=== PATIENT | male | born 1960 | race Caucasian/White ===

== ENCOUNTER 2021-07-15 15:24 | Inpatient (IN) | payer BC ==
[~2021-07-15] VITALS: Ht 188 cm; Wt 85.3 kg
--- NOTE | 2021-07-15 15:35 | NUR ---
PATIENT BIBRA FOR C/O ON AND OFF MID CHEST PAIN RADIATING TO RIGHT ARM X3 WEEKS. WORST TODAY. PATIENT IS AWAKE, ALERT AND ORIENTED X4. O RESPIRATORY DISTRESS NOTED. WILL CONTINUE TO MONITOR.
--- NOTE | 2021-07-15 15:47 | NUR ---
GREGORIA HENNING AT BEDSIDE
--- NOTE | 2021-07-15 15:48 | NUR ---
Note [email or web address] in EDM - 07/15/21 at 1550 by [email or web address] PATIENT BIBRA FOR C/O ON AND OFF MID CHEST PAIN RADIATING TO RIGHT ARM X3 WEEKS. WORST TODAY. PATIENT IS AWAKE, ALERT AND ORIENTED X4. O RESPIRATORY DISTRESS NOTED. WILL CONTINUE TO MONITOR.
--- NOTE | 2021-07-15 16:08 | NUR ---
MOVE SHEET SUBMITTED AND CALLED FOR BED.
[2021-07-15 16:10] LABS: BASOPHILS # (AUTO) 0.1 K/uL (0.0-0.2); BASOPHILS % (AUTO) 0.3 % (0.0-2.0); EOSINOPHILS % (AUTO) 0.5 % (0.0-6.0); HEMATOCRIT 44 % (39-51); HEMOGLOBIN 14.4 g/dL (13.5-17.5); LYMPHOCYTES # (AUTO) 1.6 K/uL (0.8-4.8); LYMPHOCYTES % (AUTO) 10.7 % (20.0-44.0); MEAN CORPUSCULAR HGB CONC 33 g/dl (31.0-36.0); MEAN CORPUSCULAR VOLUME 81 fL (80-96); MONOCYTES # (AUTO) 1.3 K/uL (0.1-1.30); MONOCYTES % (AUTO) 8.6 % (2.0-12.0); NEUTROPHILS % (AUTO) 79.9 % (43.0-81.0); PLATELET COUNT (AUTO) 171 K/uL (150-450); RED BLOOD CELL COUNT(AUTO) 5.42 MIL/uL (4.5-6.0)
[2021-07-15 16:14] LABS: CALCIUM, SERUM 9.2 mg/dL (8.5-10.1)
[2021-07-15] MEDS ORDERED: ONDANSETRON HCL/PF 4 MG/2 ML VIAL ONE (16:26)
[2021-07-15] MEDS ORDERED: ONDANSETRON HCL/PF 4 MG/2 ML VIAL IV ONE (16:30)
[2021-07-15] MEDS ORDERED: MORPHINE SULFATE INJ 2 MG/ML DISP.SYRIN IV ONE (16:30)
[2021-07-15] MEDS ORDERED: IOHEXOL-350 100 ML VIAL IV ONE ×2 (16:31→16:39)
[2021-07-15] MEDS ORDERED: MORPHINE SULFATE INJ 4 MG/ML DISP.SYRIN ONE (16:33)
--- NOTE | 2021-07-15 16:37 | NUR ---
PATIENT OFF TO CT Addendum: 07/15/21 at 1637 by [email or web address] AND COVID SWAB SENT TO LAB
--- NOTE | 2021-07-15 17:02 | NUR ---
[facility] CALLED MANAGER COUNCIL PAGED.
[2021-07-15 17:29] LABS: THYROID STIMULATING HORMONE 1.158 uIU/mL (0.358-3.74)
[2021-07-15] MEDS ORDERED: ENOXAPARIN SODIUM 80 MG/0.8 ML DISP.SYRIN SQ ONE (18:00)
[2021-07-15] MEDS ORDERED: ENOXAPARIN SODIUM 100 MG/ML DISP.SYRIN SQ ONE (18:10)
[2021-07-15] MEDS ORDERED: LORAZEPAM INJ 2 MG/ML VIAL IV ONE (19:30)
[2021-07-15] MEDS ORDERED: LORAZEPAM INJ 2 MG/ML VIAL ONE (19:35)
--- NOTE | 2021-07-15 19:45 | NUR ---
PT C/O ANXIETY. ADMINISTERED ATIVAN 1MG ORDERED. BP 177/111, HR 84, RR 25, O2SAT 98% ON RA
[2021-07-15] MEDS ORDERED: MAGNESIUM HYDROXIDE 30 ML UDC PO PRN (20:00)
[2021-07-15] MEDS ORDERED: Z GUARD REMEDY 2 OZ OINT TP PRN (20:00)
[2021-07-15] MEDS ORDERED: ACETAMINOPHEN 325 MG TABLET PO PRN (20:00)
[2021-07-15] MEDS ORDERED: ONDANSETRON HCL/PF 4 MG/2 ML VIAL IVP PRN (20:00)
[2021-07-15] MEDS ORDERED: MAG HYDROX/AL HYDROX/SIMETH 30 ML UDC PO PRN (20:00)
--- NOTE | 2021-07-15 20:04 | NUR ---
TELE 309-3
--- NOTE | 2021-07-15 20:25 | NUR ---
Report given to Hoang CESPEDES
[2021-07-15] MEDS ORDERED: hydrALAZINE HCL IV 20 MG VIAL IV STA (20:30)
[2021-07-15] MEDS ORDERED: hydrALAZINE HCL IV 20 MG VIAL ONE (20:38)
--- NOTE | 2021-07-15 21:11 | NUR ---
pt transferred to tele room 309-1 via ACLS measures
[2021-07-15 21:15] VITALS: BP 187/98
[2021-07-15] MEDS: MORPHINE SULFATE INJ 2 MG/ML DISP.SYRIN IV PRN (21:35)
[2021-07-15] MEDS ORDERED: HEPARIN SODIUM, PORCINE 5000 UNITS/1 ML VIAL SQ ONE (22:00)
[2021-07-15] MEDS: HEPARIN INFUSION/D5W 500 ML IV PRN (22:05)
[2021-07-16] VITALS: BP 163/101
[2021-07-16] MEDS: LORAZEPAM 1 MG TABLET PO PRN ×5 (00:12→22:16)
[2021-07-16 04:00] VITALS: BP 145/109
[2021-07-16] MEDS: MORPHINE SULFATE INJ 2 MG/ML DISP.SYRIN IV PRN ×2 (04:15→20:31)
--- NOTE | 2021-07-16 04:15 | NUR ---
RN NOTES COMPLAINED OF GENERALIZED PAIN- MORPHINE 2 MG IV GIVEN ORDERED, V/S STABLE
[2021-07-16 04:28] LABS: BASOPHILS # (AUTO) 0.1 K/uL (0.0-0.2); BASOPHILS % (AUTO) 0.4 % (0.0-2.0); EOSINOPHILS % (AUTO) 1.2 % (0.0-6.0); HEMATOCRIT 42 % (39-51); HEMOGLOBIN 13.7 g/dL (13.5-17.5); LYMPHOCYTES # (AUTO) 1.6 K/uL (0.8-4.8); LYMPHOCYTES % (AUTO) 11.8 % (20.0-44.0); MEAN CORPUSCULAR HGB CONC 33 g/dl (31.0-36.0); MEAN CORPUSCULAR VOLUME 82 fL (80-96); MONOCYTES # (AUTO) 1.3 K/uL (0.1-1.30); MONOCYTES % (AUTO) 9.5 % (2.0-12.0); NEUTROPHILS # (AUTO) 10.3 K/uL (1.8-8.9); NEUTROPHILS % (AUTO) 77.1 % (43.0-81.0); PLATELET COUNT (AUTO) 146 K/uL (150-450); RED BLOOD CELL COUNT(AUTO) 5.11 MIL/uL (4.5-6.0); WHITE BLOOD COUNT (AUTO) 13.4 K/uL (4.3-11.0)
[2021-07-16 04:37] LABS: CALCIUM, SERUM 8.7 mg/dL (8.5-10.1); CREATININE 0.9 mg/dL (0.6-1.3); MAGNESIUM 2.2 mg/dL (1.8-2.4); PHOSPHORUS 4.1 mg/dL (2.5-4.9); POTASSIUM 3.8 mmol/L (3.5-5.1)
--- NOTE | 2021-07-16 06:47 | NUR ---
ELEVATOR TROUBLESHOOTER NOTES AWAKE & RESPONSIVE. NOT IN ANY DISTRESS. NO SOB NOTED. DENIES ANY PAIN OR DISCOMFORT AT THIS TIME. ON TELE ST @ 108 WITH HEPARIN DRIP INFUSING WELL. MONITORED ACCORDINGLY. CALL LIGHT WITHIN REACH. BED IN LOWEST POSITION. SR UP X 2 FOR SAFETY. WILL ENDORSE TO NEXT SHIFT.
--- NOTE | 2021-07-16 07:47 | NUR ---
OCCASIONAL BABYSITTER OPENING NOTES PT IS AWAKE IN BED. NOT IN ANY DISTRESS. NO SOB NOTED. DENIES ANY PAIN OR DISCOMFORT AT THIS TIME. TELE MONITOR DETECTS SINUS TACHYCARDIA @ 107, WITH HEPARIN DRIP INFUSING WELL. SAFETY MEASURES IN PLACE: BED IN LOWEST, LOCKED POSITION, BRAKES ON, SIDERAILS UPx2 FOR SAFETY. CALL LIGHT AND TABLE WITHIN REACH. WILL CONTINUE TO MONITOR.
[2021-07-16 08:23] VITALS: BP 162/92
[2021-07-16] MEDS ORDERED: CLONIDINE HCL 0.1 MG TABLET PO PRN (09:30)
[2021-07-16] MEDS: NIFEdipine XL (30MG) 30 MG TAB PO SCH (09:45)
--- NOTE | 2021-07-16 10:48 | NUR ---
RN NOTES PATIENT ACCIDENTALLY PULLED OUT L HAND #18 IV LINE; REINSERTED ON SAME SITE, #20, INTACT AND PATENT. HEPARIN DRIP CONTINUED INDICATED. NO S/SX OF BLEEDING NOTED. DR. OCASIO MADE AWARE WELL OF TROPONIN RESULT AND BP W/ ORDERS NOTED.
[2021-07-16 12:20] VITALS: BP 155/96
[2021-07-16] MEDS: HEPARIN INFUSION/D5W 500 ML IV PRN (14:55)
--- NOTE | 2021-07-16 15:21 | NUR ---
Spoke to Dr. Akins about increasing Ativan to 1 mg, Dr. Akins agreed.
[2021-07-16 16:01] VITALS: BP 153/96
[2021-07-16 16:12] LABS: PROSTATE SPECIFIC ANTIGEN SCR 0.38 ng/mL (0.00-4.00)
--- NOTE | 2021-07-16 16:52 | NUR ---
RN NOTES YANELIS DOSS, CURRENTLY IN UNIT AND SEEN PATIENT FOR ONCO CONSULT. PER ROMARIO, PATIENT SCHEDULED FOR LIVER BIOPSY ON MONDAY.
--- NOTE | 2021-07-16 18:29 | NUR ---
STAGE DIRECTOR CLOSING NOTES PT IS AWAKE IN BED. NOT IN ANY DISTRESS. NO SOB NOTED. DENIED ANY PAIN OR DISCOMFORT THROUGHOUT SHIFT. TELE MONITOR DETECTS SINUS TACHYCARDIA WITH RATE FROM 100-110 WITH HEPARIN DRIP INFUSING WELL. ALL NEEDS MET. PT KEPT CLEAN AND DRY. SAFETY MEASURES IN PLACE: BED IN LOWEST, LOCKED POSITION, BRAKES ON, SIDERAILS UPx2 FOR SAFETY. CALL LIGHT AND TABLE WITHIN REACH. WILL ENDORSE TO ONCOMING SHIFT.
--- NOTE | 2021-07-16 19:45 | NUR ---
FINISHER ACCORDION OPENING NOTES PATIENT IN ROOM, APPEARS AND STATES THAT HE IS ANXIOUS BUT ATIVAN NOT DUE AT THIS TIME, ALERT/ORIENTED X 4, PATIENT ABLE TO MAKE NEEDS KNOWN. PT STABLE ON ROOM AIR, NO S/S OF DISTRESS OR SOB NOTED, BREATHING EVEN AND UNLABORED. PT ON TELE MONITORING, SINUS TACHY. HEPARIN DRIP INFUSING WELL @ 31 ML/HR, NO S/S OF BLEEDING. PATIENT IS AMBULATORY AND STEADY. SAFETY MEASURES IN PLACE: CALL LIGHT WITHIN REACH, BED LOCKED IN LOW POSITION, SIDE RAILS UP X 2. WILL CONTINUE TO MONITOR
[2021-07-16 20:00] VITALS: BP 152/99
--- NOTE | 2021-07-16 20:31 | NUR ---
GENERAL MAINTENANCE TECHNICIAN NOTE PATIENT REPORTING 9/10 BACK PAIN. 2 MG OF MORPHINE IVP Q6H GIVEN ORDERED. WILL CONTINUE TO MONITOR PATIENT
--- NOTE | 2021-07-16 22:16 | NUR ---
DISPATCHER SERVICE CHIEF NOTE PATIENT IS VERY ANXIOUS AND PACING IN THE ROOM. ATIVAN 1 MG PO GIVEN ORDERED. WILL CONTINUE TO MONITOR PATIENT
[2021-07-16] MEDS ORDERED: MORPHINE SULFATE INJ 2 MG/ML DISP.SYRIN IV ONE (23:00)
--- NOTE | 2021-07-16 23:00 | NUR ---
NETWORK SOLUTIONS ARCHITECT NOTE PATIENT STILL IN EXCRUCIATING PAIN, 9/O BACK PAIN, HOWEVER MORPHINE IS Q6H HOURS. CHARGE NURSE BRITTANY CONTACTED DR. HAYWARD REGARDING PATIENT'S PAIN WITH NEW ORDER FOR A ONE TIME DOSE OF MORPHINE 2 MG IV NOW, WELL A NEW ORDER FOR MORPHINE 4 MG IVP Q4H. ORDER CARRIED OUT. WILL CONTINUE TO MONITOR PATIENT
[2021-07-17] VITALS: BP 138/96
--- NOTE | 2021-07-17 00:15 | NUR ---
PRODUCTION CORRUGATOR NOTE PATIENT ACCIDENTALLY PULLED OUT LEFT HAND #20G IV LINE WITH SOME BLEEDING THAT STOPPED AFTER FIRM PRESSURE WAS APPLIED. NEW IV INSERTED RIGHT HAND #20G AND HEPARIN DRIP CONTINUED AND INFUSING WELL. WILL CONTINUE TO MONITOR PATIENT
[2021-07-17] MEDS: MORPHINE SULFATE INJ 4 MG/ML DISP.SYRIN IV PRN ×5 (03:00→21:54)
[2021-07-17 04:00] VITALS: BP 173/98
[2021-07-17] MEDS: LORAZEPAM 1 MG TABLET PO PRN ×3 (05:10→20:41)
[2021-07-17 06:27] LABS: BASOPHILS # (AUTO) 0.1 K/uL (0.0-0.2); BASOPHILS % (AUTO) 0.5 % (0.0-2.0); EOSINOPHILS % (AUTO) 1.4 % (0.0-6.0); HEMATOCRIT 41 % (39-51); HEMOGLOBIN 13.3 g/dL (13.5-17.5); LYMPHOCYTES # (AUTO) 1.4 K/uL (0.8-4.8); LYMPHOCYTES % (AUTO) 11.2 % (20.0-44.0); MEAN CORPUSCULAR HGB CONC 33 g/dl (31.0-36.0); MEAN CORPUSCULAR VOLUME 82 fL (80-96); MONOCYTES # (AUTO) 1.2 K/uL (0.1-1.30); MONOCYTES % (AUTO) 9.6 % (2.0-12.0); NEUTROPHILS # (AUTO) 9.8 K/uL (1.8-8.9); NEUTROPHILS % (AUTO) 77.3 % (43.0-81.0); PLATELET COUNT (AUTO) 153 K/uL (150-450); RED BLOOD CELL COUNT(AUTO) 4.99 MIL/uL (4.5-6.0); WHITE BLOOD COUNT (AUTO) 12.6 K/uL (4.3-11.0)
[2021-07-17 06:45] LABS: CALCIUM, SERUM 9.1 mg/dL (8.5-10.1); CREATININE 0.8 mg/dL (0.6-1.3); MAGNESIUM 2.2 mg/dL (1.8-2.4); PHOSPHORUS 3.7 mg/dL (2.5-4.9); POTASSIUM 3.7 mmol/L (3.5-5.1)
--- NOTE | 2021-07-17 07:52 | NUR ---
TELE/RN OPENING NOTES RECEIVED PATIENT ON BED SLEEPING EASILY AWAKEN BY NAME AND LIGHT TOUCH. PATIENT IS ON ROOM AIR. PATIENT IN NO APPARENT RESPIRATORY DISTRESS NOTED. NO COMPLAINED OF PAIN NOTED AT THIS TIME. TELE MONITOR READING SINUS RHYTHM 85 BPM. WILL CONTINUE TO MONITOR.
[2021-07-17 08:00] VITALS: BP 149/107
[2021-07-17 08:06] LABS: IMMUNOGLOBULIN A, SERUM 532 mg/dL (90-386); IMMUNOGLOBULIN G, SERUM 1019 mg/dL (603-1613); IMMUNOGLOBULIN M, SERUM 53 mg/dL (20-172)
[2021-07-17] MEDS: NIFEdipine XL (30MG) 30 MG TAB PO SCH (08:16)
[2021-07-17] MEDS ORDERED: HEPARIN SODIUM, PORCINE 5000 UNITS/1 ML VIAL IV ONE (09:30)
[2021-07-17] MEDS: HEPARIN INFUSION/D5W 500 ML IV PRN (09:41)
--- NOTE | 2021-07-17 09:50 | NUR ---
TELE/RN NOTES APTT 36.0 SEC GIVE BOLUS 3400 UNITS(40UNITS/KG) AND INCREASE DRIP BY 2 UNITS/KG/H=150 UNITS/H AND ORDER PTT AT 1540. WILL CONTINUE TO MONITOR.
[2021-07-17 16:13] VITALS: BP 159/85
--- NOTE | 2021-07-17 17:20 | NUR ---
TELE/RN NOTES APTT 51.1 SEC (46-70 SECONDS, NO CHANGE), HEPARIN DRIP 1700 UNITS AT 34ML/HR. WILL CONTINUE TO MONITOR.
--- NOTE | 2021-07-17 19:22 | NUR ---
TELE/RN CLOSING NOTES RECEIVED PATIENT ON BED AWAKE ALERT AND ORIENTED X4. PATIENT IS ON ROOM AIR. PATIENT IN NO APPARENT RESPIRATORY DISTRESS NOTED. NO COMPLAINED OF PAIN NOTED AT THIS TIME. TELE MONITOR READING SINUS RHYTHM 99 BPM. SEEN AND EXAMINED BY MD WITH ORDERS MADE AND CARRIED OUT. ALL DUE MEDICATION WAS GIVEN. IV ACCESS AT RIGHT HAND #20G WITH HEPARIN DRIP 1700 UNITS AT 34 ML/HR ML/HR ON AND INFUSING WELL. SAFETY PRECAUTION WAS IN PLACED. BED IN LOWEST POSITION AND LOCKED. CALL LIGHT WITHIN REACH. WILL ENDORSED TO FREELANCE DESIGNER FOR FRIEDA.
--- NOTE | 2021-07-17 19:23 | NUR ---
carbon lamp cleaner Opening Notes Patient was awake sitting on his bed. Patient's A/O x4. Pt's on room air with no respiratory distress noted. Patient's connected to a tele monitor with no cardiac distress noted. Patient has an IV access on his right hand G#20, which is intact, patent, and flushing well. Patient's in no acute distress at this time. Safety measures in place: Bed locked, bed alarm on, side rails up x3, and call light within reach of the patient. Will continue to monitor the patient.
[2021-07-17 20:00] VITALS: BP 135/90
--- NOTE | 2021-07-17 21:54 | NUR ---
extension course coordinator Notes Patient was given 4mg of Morphine IV for 10/10 pain. Will continue to monitor the patient.
[2021-07-18] VITALS: BP 148/91
[2021-07-18] MEDS: HEPARIN INFUSION/D5W 500 ML IV PRN ×3 (00:29→17:50)
[2021-07-18] MEDS: MORPHINE SULFATE INJ 4 MG/ML DISP.SYRIN IV PRN ×4 (02:35→21:30)
--- NOTE | 2021-07-18 02:35 | NUR ---
import/export freight forwarder Notes Patient was given 4mg of Morphine IV for 10/10 pain. Will continue to monitor the patient.
[2021-07-18] MEDS: LORAZEPAM 1 MG TABLET PO PRN ×2 (03:49→18:56)
[2021-07-18 04:00] VITALS: BP 165/83
[2021-07-18 05:47] VITALS: BP 157/95
--- NOTE | 2021-07-18 05:47 | NUR ---
cns Notes Patient's current BP is 157/95. Will continue to monitor the patient.
--- NOTE | 2021-07-18 06:56 | NUR ---
brief writer Closing Notes Patient was last seen sleeping in bed. Patient's A/O x4. Pt's on room air with no respiratory distress noted. Patient's connected to a tele monitor with no cardiac distress noted. Patient has an IV access on his right hand G#20, which is intact, patent, and flushing well. Patient's in no acute distress at this time. Safety measures in place: Bed locked, bed alarm on, side rails up x3, and call light within reach of the patient. Will endorse care to the day shift nurse.
[2021-07-18 07:09] LABS: CALCIUM, SERUM 9.1 mg/dL (8.5-10.1); CREATININE 0.9 mg/dL (0.6-1.3); MAGNESIUM 2.3 mg/dL (1.8-2.4); PHOSPHORUS 4.5 mg/dL (2.5-4.9); POTASSIUM 3.9 mmol/L (3.5-5.1)
[2021-07-18 07:10] LABS: ALBUMIN 3.2 g/dL (3.4-5.0); BILIRUBIN,DIRECT 0.1 mg/dL (0.0-0.2); BILIRUBIN,TOTAL 0.3 mg/dL (0.2-1.0); TOTAL PROTEIN, SERUM 7.5 g/dL (6.4-8.2)
--- NOTE | 2021-07-18 07:26 | NUR ---
MAIL AGENT OPENING NOTES RECEIVED PATIENT RESTING IN BED. PATIENT IS ALERT/ORIENTED X 4, PATIENT ABLE TO MAKE NEEDS KNOWN. PT IS BREATHING EVENLY AND NONLABORED STABLE ON ROOM AIR, NO S/S OF DISTRESS OR SOB NOTED. PATIENT DOES NOT COMPLAIN OF PAIN AT THIS TIME. PT ON TELE MONITORING, SINUS TACHY. HEPARIN DRIP INFUSING WELL @ 34 ML/HR, NO S/S OF BLEEDING. SAFETY MEASURES IN PLACE: CALL LIGHT WITHIN REACH, BED LOCKED IN LOW POSITION, BED ALARM ON, SIDE RAILS UP X 2. WILL CONTINUE TO MONITOR
[2021-07-18] MEDS: NIFEdipine XL (30MG) 30 MG TAB PO SCH (08:23)
--- NOTE | 2021-07-18 09:05 | NUR ---
RN NOTE PATIENT COMPLAINED OF SEVERE PAIN 07/30. PATIENT ASKED FOR PRN PAIN MEDICATION. VITALS WNL. WILL GIVE PRN PAIN MEDICATION. WILL CONTINUE TO MONITOR
--- NOTE | 2021-07-18 13:26 | NUR ---
RN NOTE PATIENT COMPLAINED OF SEVERE PAIN 07/30. PATIENT ASKED FOR PRN PAIN MEDICATION. VITALS WNL. WILL GIVE PRN PAIN MEDICATION, VIAL WOULD NOT SCAN, PHARMACY NOTIFIED. PHARMACY STATED THEY WOULD SCAN. WILL CONTINUE TO MONITOR
--- NOTE | 2021-07-18 17:03 | NUR ---
RN NOTE PTT RESULT @ 43.7, FOLLOWED HEPARIN PROTOCOL BOLUS HEPARIN 3.4 AND INCREASED TO 1850 UNITS. ORDERED Q6HR PTT DRAW. WILL CONTINUE TO MONITOR
--- NOTE | 2021-07-18 17:26 | NUR ---
RN NOTE PATIENT COMPLAINED OF SEVERE PAIN 07/30. PATIENT ASKED FOR PRN PAIN MEDICATION. VITALS WNL. WILL GIVE PRN PAIN MEDICATION. WILL CONTINUE TO MONITOR
[2021-07-18] MEDS ORDERED: HEPARIN SODIUM, PORCINE 5000 UNITS/1 ML VIAL IV ONE (17:30)
--- NOTE | 2021-07-18 18:28 | NUR ---
DESK CLERK CLOSING NOTES PATIENT RESTING IN BED. PATIENT IS ALERT/ORIENTED X 4, PATIENT ABLE TO MAKE NEEDS KNOWN. PT IS BREATHING EVENLY AND NONLABORED STABLE ON ROOM AIR, NO S/S OF DISTRESS OR SOB NOTED. PATIENT DOES NOT COMPLAIN OF PAIN AT THIS TIME. PT ON TELE MONITORING, SINUS TACHY. HEPARIN DRIP INFUSING WELL @ ML/HR, NO S/S OF BLEEDING. ALL MEDICATIONS GIVEN ORDERED. SAFETY MEASURES IN PLACE: CALL LIGHT WITHIN REACH, BED LOCKED IN LOW POSITION, BED ALARM ON, SIDE RAILS UP X 2. WILL ENDORSE TO ONCOMING SHIFT.
--- NOTE | 2021-07-18 19:44 | NUR ---
sports attorney Opening Notes Patient was last seen sleeping in bed. Patient's A/O x4. Pt's on room air with no respiratory distress noted. Patient's connected to a tele monitor with no cardiac distress noted. Patient has an IV access on his right hand G#20, which is intact, patent, and flushing well. Patient's in no acute distress at this time. All safety measures in place: Bed locked, bed alarm on, side rails up x3, and call light within reach of the patient. Will continue to monitor the patient.
--- NOTE | 2021-07-18 21:30 | NUR ---
stitch cleaner Notes Patient c/o of 10/10 pain. Patient was given 4mg of Morphine IV. Will continue to monitor the patient.
[2021-07-19 00:38] VITALS: BP 155/95
[2021-07-19] MEDS: LORAZEPAM 1 MG TABLET PO PRN ×2 (01:01→08:51)
[2021-07-19] MEDS: MORPHINE SULFATE INJ 4 MG/ML DISP.SYRIN IV PRN ×4 (01:31→22:13)
[2021-07-19 04:39] VITALS: BP 157/90
--- NOTE | 2021-07-19 05:04 | NUR ---
coastal tug mate Notes Just called Radiology now. [facility]/Environmental Technician was endorsed to notify the Radiologist that will be performing the patient's biopsy that heparin has to be held 4 hours prior biopsy. There's no scheduled time for the biopsy today.
[2021-07-19] MEDS: HEPARIN INFUSION/D5W 500 ML IV PRN (05:25)
[2021-07-19 06:22] LABS: BASOPHILS # (AUTO) 0.1 K/uL (0.0-0.2); BASOPHILS % (AUTO) 0.6 % (0.0-2.0); EOSINOPHILS % (AUTO) 1.1 % (0.0-6.0); HEMATOCRIT 41 % (39-51); HEMOGLOBIN 13.4 g/dL (13.5-17.5); LYMPHOCYTES # (AUTO) 1.6 K/uL (0.8-4.8); LYMPHOCYTES % (AUTO) 14.2 % (20.0-44.0); MEAN CORPUSCULAR HGB CONC 32 g/dl (31.0-36.0); MEAN CORPUSCULAR VOLUME 83 fL (80-96); MONOCYTES # (AUTO) 1.2 K/uL (0.1-1.30); MONOCYTES % (AUTO) 10.4 % (2.0-12.0); NEUTROPHILS # (AUTO) 8.5 K/uL (1.8-8.9); NEUTROPHILS % (AUTO) 73.7 % (43.0-81.0); PLATELET COUNT (AUTO) 170 K/uL (150-450); RED BLOOD CELL COUNT(AUTO) 5.02 MIL/uL (4.5-6.0); WHITE BLOOD COUNT (AUTO) 11.5 K/uL (4.3-11.0)
[2021-07-19 06:44] LABS: ALBUMIN 3.2 g/dL (3.4-5.0); BILIRUBIN,TOTAL 0.4 mg/dL (0.2-1.0); CREATININE 0.9 mg/dL (0.6-1.3); MAGNESIUM 2.1 mg/dL (1.8-2.4); PHOSPHORUS 4.2 mg/dL (2.5-4.9); POTASSIUM 4.3 mmol/L (3.5-5.1); TOTAL PROTEIN, SERUM 7.6 g/dL (6.4-8.2)
--- NOTE | 2021-07-19 07:26 | NUR ---
telephone lineman Closing Notes Patient was last seen awake in his room. Patient's A/O x4. Pt's on room air with no respiratory distress noted. Patient's connected to a tele monitor with no cardiac distress noted. Patient has an IV access on his right hand G#20, which is intact, patent, and flushing well. Patient's in no acute distress at this time. All safety measures in place: Bed locked, bed alarm on, side rails up x3, and call light within reach of the patient. Endorsed care to the day shift nurse.
[2021-07-19 08:00] VITALS: BP 164/96
--- NOTE | 2021-07-19 08:05 | NUR ---
CONSTRUCTION TECHNICIAN OPENING NOTES RECEIVED PATIENT AWAKE, WALKING THE HALLWAY. PATIENT ON ROOM AIR. BREATHING IS EVEN AND UNLABORED, NO SOB NOTED. TELE MONITOR WITH A CURRENT READING OS SR 97 BPM. NO COMPLAINS OF PAIN. IV ACCESS ON R HAND G #20 RUNNING HEPARIN DRIP 1850 @37 ML/HR. SAFETY PRECAUTIONS IN PLACE; BED IN LOW POSITION AND LOCKED, RAILS UP X2, CALL LIGHT WITHIN REACH. WILL CONTINUE TO MONITOR PATIENT.
[2021-07-19] MEDS: NIFEdipine XL (30MG) 30 MG TAB PO SCH (08:37)
--- NOTE | 2021-07-19 08:52 | NUR ---
HAM FACER NOTES PATIENT VERY ANXIOUS; MOVES AROUND IN BED, ASKS FOR ANXIETY MEDICATION. PRN ATIVAN ADMINISTERED.
--- NOTE | 2021-07-19 10:20 | NUR ---
MS RN NOTES PER MD ORDER HEPARIN INFUSION STOPPED 4 HOURS BEFORE PROCEDURE. PROCEDURE TIME AT 1400, INFUSION STOPPED AT 1010
--- NOTE | 2021-07-19 14:00 | NUR ---
MS RN NOTES PATIENT PICKED-UP FOR PROCEDURE
[2021-07-19] MEDS ORDERED: NALOXONE PREFILLED SYRINGE 2 MG/2 ML SYRINGE IV ONE (14:30)
[2021-07-19] MEDS ORDERED: MIDAZOLAM HCL 5MG/ML VIAL 25 MG/5 ML VIAL IV ONE (14:30)
[2021-07-19] MEDS ORDERED: FENTANYL PF 250MCG/5ML AMPUL IV ONE (14:30)
[2021-07-19 16:00] VITALS: BP 168/91
--- NOTE | 2021-07-19 16:37 | NUR ---
MS RN NOTES PER MD ORDER TO RESTART HEPARIN DRIP 6 HOURS AFTER PROCEDURE.
--- NOTE | 2021-07-19 17:24 | NUR ---
MS RN NOTES PATIENT COMPLAINING OF PAIN 9 OUT OF 10 IN THE BACK AND REQUESTING PAIN MEDICATION. PRN MORPHINE 4 MG ADMINISTERED. WILL REASSESS.
--- NOTE | 2021-07-19 19:30 | NUR ---
RN OPENING NOTE PATIENT WALKING AROUND HIS ROOM, A/O X 4, ABLE TO MAKE NEEDS KNOWN. NO PAIN REPORTED AT THIS TIME. PATIENT'S BREATHING EVEN AND UNLABORED, TOLERATING ROOM AIR, NO SOB. PATIENT IS S/P LIVER MASS BIOPSY. HEPARIN DRIP ON HOLD, WILL RESUME AT 2200. PATIENT HAS A R HAND 20 G PATENT AND INTACT. WILL MONITOR PATIENT CLOSELY AND EVALUATE FOR ANY SIGNS OF BLEEDING. SAFETY MEASURES IN PLACE: BED LOCKED AND IN LOWEST POSITION, CALL LIGHT WITHIN REACH, SIDE RAILS UP.
--- NOTE | 2021-07-19 19:36 | NUR ---
MATERNAL CHILD NURSE CLOSING NOTES PATIENT IN BED, AWAKE, A/O X4. PATIENT ON ROOM AIR. BREATHING IS EVEN AND UNLABORED, NO SOB NOTED. NO COMPLAINS OF PAIN. IV ACCESS ON R HAND G #20, SL. ALL NEEDS ATTENDED DURING THE DAY. SAFETY PRECAUTIONS IN PLACE; BED IN LOW POSITION AND LOCKED, RAILS UP X2, CALL LIGHT WITHIN REACH. ENDORSED TO SAFETY LEAD NURSE FOR FREIDA.
[2021-07-19 20:00] VITALS: BP 147/88
--- NOTE | 2021-07-19 22:45 | NUR ---
RN NOTE MORPHINE GIVEN FOR 10/10 BACK PAIN. WILL REASSESS MED EFFECTIVENESS.
--- NOTE | 2021-07-19 23:34 | NUR ---
RN NOTE SPOKE WITH DR. DOSS REGARDING RESUMING HEPARIN DRIP S/P LIVER BIOPSY. ORDER IS TO FOLLOW PROTOCOL AND START AT INITIAL DOSE. PROTOCOL STATES, FOR APTT OF 25.6, GIVE 6800 UNITS HEPARIN BOLUS AND INITIATE AT 1550 BASED ON PATIENT'S WEIGHT. WILL CONTINUE TO MONITOR PATIENT FOR ANY SIGNS OF BLEEDING.
[2021-07-20] MEDS ORDERED: HEPARIN SODIUM, PORCINE 5000 UNITS/1 ML VIAL IV ONE
[2021-07-20] MEDS: LORAZEPAM 1 MG TABLET PO PRN ×3 (00:07→23:13)
--- NOTE | 2021-07-20 00:10 | NUR ---
RN NOTE ATIVAN GIVEN FOR RESTLESSNESS AND AGITATION.
[2021-07-20] MEDS: MORPHINE SULFATE INJ 4 MG/ML DISP.SYRIN IV PRN ×4 (02:47→21:42)
[2021-07-20 06:44] LABS: BASOPHILS # (AUTO) 0.1 K/uL (0.0-0.2); BASOPHILS % (AUTO) 0.4 % (0.0-2.0); EOSINOPHILS % (AUTO) 0.8 % (0.0-6.0); HEMATOCRIT 43 % (39-51); HEMOGLOBIN 13.8 g/dL (13.5-17.5); LYMPHOCYTES # (AUTO) 1.5 K/uL (0.8-4.8); LYMPHOCYTES % (AUTO) 10.5 % (20.0-44.0); MEAN CORPUSCULAR HGB CONC 32 g/dl (31.0-36.0); MEAN CORPUSCULAR VOLUME 82 fL (80-96); MONOCYTES # (AUTO) 1.5 K/uL (0.1-1.30); MONOCYTES % (AUTO) 10.7 % (2.0-12.0); NEUTROPHILS # (AUTO) 11.2 K/uL (1.8-8.9); NEUTROPHILS % (AUTO) 77.6 % (43.0-81.0); PLATELET COUNT (AUTO) 184 K/uL (150-450); RED BLOOD CELL COUNT(AUTO) 5.18 MIL/uL (4.5-6.0); WHITE BLOOD COUNT (AUTO) 14.4 K/uL (4.3-11.0)
[2021-07-20 06:57] LABS: ALBUMIN 3.3 g/dL (3.4-5.0); BILIRUBIN,DIRECT 0.2 mg/dL (0.0-0.2); BILIRUBIN,TOTAL 0.5 mg/dL (0.2-1.0); CALCIUM, SERUM 8.9 mg/dL (8.5-10.1); CREATININE 1.1 mg/dL (0.6-1.3); MAGNESIUM 2.1 mg/dL (1.8-2.4); PHOSPHORUS 3.9 mg/dL (2.5-4.9); POTASSIUM 3.7 mmol/L (3.5-5.1); TOTAL PROTEIN, SERUM 7.7 g/dL (6.4-8.2)
--- NOTE | 2021-07-20 07:40 | NUR ---
RN CLOSING NOTE PATIENT IN BED, SLEEPING. PATIENT STILL HAS CONTINUOUS HEPARIN DRIP AT 1550 UNITS. NO S/S OF BLEEDING. PAIN MANAGED WITH MORPHINE, AND AGITATION WITH ATIVAN. NOT IN ANY APPARENT DISTRESS. ENDORSED TO DAY SHIFT NURSE FOR FRIEDA
--- NOTE | 2021-07-20 07:57 | NUR ---
MS RN OPENING NOTES RECEIVED PATIENT IN BED, ASLEEP. PATIENT ON ROOM AIR. BREATHING IS EVEN AND UNLABORED, NO SOB NOTED. NO S/S OF PAIN SUCH FACIAL GRIMACING MOANING OR GUARDING AT THIS TIME. IV ACCESS ON R HAND G #20 RUNNING HEPARIN DRIP. SAFETY PRECAUTIONS IN PLACE; BED IN LOW POSITION AND LOCKED, RAILS UP X2, CALL LIGHT WITHIN REACH. WILL CONTINUE TO MONITOR PATIENT.
[2021-07-20 08:00] VITALS: BP 135/85
[2021-07-20] MEDS: NIFEdipine XL (30MG) 30 MG TAB PO SCH (08:56)
--- NOTE | 2021-07-20 09:46 | NUR ---
MS RN NOTE PATIENT COMPLAINED OF SEVERE PAIN 07/30. PATIENT ASKED FOR PRN PAIN MEDICATION. VITALS WNL. WILL GIVE PRN PAIN MEDICATION. WILL CONTINUE TO MONITOR
--- NOTE | 2021-07-20 10:27 | NUR ---
MUSTANGER NOTES PATIENT VERY ANXIOUS; MOVES AROUND IN BED, ASKS FOR ANXIETY MEDICATION. PRN ATIVAN ADMINISTERED.
[2021-07-20] MEDS: HEPARIN INFUSION/D5W 500 ML IV PRN (11:20)
[2021-07-20] MEDS: ALPRAZOLAM 0.5 MG TABLET PO SCH ×2 (14:28→17:32)
--- NOTE | 2021-07-20 14:49 | NUR ---
MS RN NOTE PATIENT COMPLAINED OF SEVERE PAIN 06/29. PATIENT ASKED FOR PRN PAIN MEDICATION. VITALS WNL. WILL GIVE PRN PAIN MEDICATION. WILL CONTINUE TO MONITOR
[2021-07-20 16:00] VITALS: BP 133/89
[2021-07-20] MEDS ORDERED: LIDOCAINE 1% INJ 50 ML MDV IJ ONE (17:30)
--- NOTE | 2021-07-20 18:30 | NUR ---
MS RN NOTES GOT CONSENT FOR BONE MARROW BIOPSY TOMORROW.
--- NOTE | 2021-07-20 18:46 | NUR ---
MS RN CLOSING NOTES PATIENT IN BED, ASLEEP. PATIENT ON ROOM AIR. BREATHING IS EVEN AND UNLABORED, NO SOB NOTED. PAIN TREATED WITH PRN PAIN MEDICATION PER MD ORDER. IV ACCESS ON R HAND G #20 RUNNING HEPARIN DRIP. ALL NEEDS ATTENDED DURING THE DAY. SAFETY PRECAUTIONS IN PLACE; BED IN LOW POSITION AND LOCKED, RAILS UP X2, CALL LIGHT WITHIN REACH. WILL ENDORSE TO LOCKS TENDER NURSE.
--- NOTE | 2021-07-20 19:51 | NUR ---
MS RN OPENING NOTES PATIENT RESTING IN BED, ALERT/ORIENTED X 4, PT ABLE TO MAKE NEEDS KNOWN. PATIENT STABLE ON RA, NO S/S OF DISTRESS OR SOB NOTED, BREATHING EVEN AND UNLABORED, NO SOB NOTED. RIGHT HAND #20G IV ACCESS RUNNING HEPARIN DRIP @ 31 ML/HR. SAFETY PRECAUTIONS IN PLACE; BED LOCKED IN LOW POSITION, RAILS UP X2, CALL LIGHT WITHIN REACH. WILL MONITOR PATIENT THROUGHOUT SHIFT
[2021-07-20 20:00] VITALS: BP 139/97
[2021-07-21] MEDS: MORPHINE SULFATE INJ 4 MG/ML DISP.SYRIN IV PRN ×2 (03:01→08:27)
--- NOTE | 2021-07-21 03:30 | NUR ---
MS RN NOTE HEPARIN DRIP STOPPED D/T BONE BIOPSY AT 730 AM PER ORDERS. WILL CONTINUE TO MONITOR PATIENT
[2021-07-21] MEDS: LORAZEPAM 1 MG TABLET PO PRN (06:15)
[2021-07-21 06:41] LABS: BASOPHILS # (AUTO) 0.1 K/uL (0.0-0.2); BASOPHILS % (AUTO) 0.4 % (0.0-2.0); EOSINOPHILS % (AUTO) 1.1 % (0.0-6.0); HEMATOCRIT 42 % (39-51); HEMOGLOBIN 13.5 g/dL (13.5-17.5); LYMPHOCYTES # (AUTO) 1.2 K/uL (0.8-4.8); MEAN CORPUSCULAR HGB CONC 33 g/dl (31.0-36.0); MEAN CORPUSCULAR VOLUME 82 fL (80-96); MONOCYTES # (AUTO) 1.6 K/uL (0.1-1.30); NEUTROPHILS # (AUTO) 10.2 K/uL (1.8-8.9); NEUTROPHILS % (AUTO) 77.5 % (43.0-81.0); PLATELET COUNT (AUTO) 161 K/uL (150-450); RED BLOOD CELL COUNT(AUTO) 5.09 MIL/uL (4.5-6.0); WHITE BLOOD COUNT (AUTO) 13.1 K/uL (4.3-11.0)
[2021-07-21 06:59] LABS: ALBUMIN 3.2 g/dL (3.4-5.0); BILIRUBIN,TOTAL 0.5 mg/dL (0.2-1.0); CALCIUM, SERUM 8.7 mg/dL (8.5-10.1); CREATININE 1.1 mg/dL (0.6-1.3); POTASSIUM 4.1 mmol/L (3.5-5.1); TOTAL PROTEIN, SERUM 7.4 g/dL (6.4-8.2)
--- NOTE | 2021-07-21 07:30 | NUR ---
MS RN NOTES PATIENT RESTING IN BED, ALERT/ORIENTED X 4, NO SIGNIFICANT CHANGES THROUGHTOUT SHIFT. NO S/S OF DISTRESS OR SOB NOTED, BREATHING EVEN AND UNLABORED. SUPPLIES FOR BONE BIOPSY PLACED IN BED SIDE TABLE. ENDORSED TO DAY SHIFT NURSE FOR CONTINUITY OF CARE
[2021-07-21 08:00] VITALS: BP 142/96
[2021-07-21 08:28] VITALS: BP 142/96
[2021-07-21] MEDS: NIFEdipine XL (30MG) 30 MG TAB PO SCH (08:28)
[2021-07-21] MEDS: ALPRAZOLAM 0.5 MG TABLET PO SCH (08:28)
[2021-07-21 10:01] LABS: BASOPHILS # (AUTO) 0.1 K/uL (0.0-0.2); BASOPHILS % (AUTO) 0.6 % (0.0-2.0); EOSINOPHILS % (AUTO) 0.8 % (0.0-6.0); HEMATOCRIT 42 % (39-51); HEMOGLOBIN 13.5 g/dL (13.5-17.5); LYMPHOCYTES # (AUTO) 1.1 K/uL (0.8-4.8); LYMPHOCYTES % (AUTO) 8.1 % (20.0-44.0); MEAN CORPUSCULAR HGB CONC 32 g/dl (31.0-36.0); MEAN CORPUSCULAR VOLUME 82 fL (80-96); MONOCYTES # (AUTO) 1.7 K/uL (0.1-1.30); MONOCYTES % (AUTO) 12.4 % (2.0-12.0); NEUTROPHILS % (AUTO) 78.1 % (43.0-81.0); PLATELET COUNT (AUTO) 166 K/uL (150-450); RED BLOOD CELL COUNT(AUTO) 5.15 MIL/uL (4.5-6.0); WHITE BLOOD COUNT (AUTO) 14.1 K/uL (4.3-11.0)
[2021-07-21] MEDS ORDERED: NIFE-35 PO (10:11)
[2021-07-21] MEDS ORDERED: RIVA10TA PO (10:11)
[2021-07-21] MEDS ORDERED: RIVAROXABAN 15 MG TABLET PO ONE (10:30)
--- NOTE | 2021-07-21 11:50 | NUR ---
MS RN NOTE PATIENT SEEN BY DR. ESCUDERO WITH ORDER FOR DISCHARGE. COMFORT MEASURES PROVIDED. IN STABLE CONDITION. HEALTH TEACHING DONE REGARDING, DISCHARGE INSTRUCTIONS, MEDICATIONS, ETC. VERBALIZED UNDERSTANDIGN AND APPRECIATION. PATIENT INSTRUCTED TO FOLLOW INSTRUCTIONS INCLUDING FOLLOW UP WITH DR. PATRICK. CALLING CARD GIVEN TO PATIENT. AGAIN, VERBALIZED UNDERSTANDING AND APPRECIATION. IV ACCESS REMOVED AND COVERED WITH DRESSING, TOLERATED WELL. IN STABLE CONDITION. WILL CONTINUE TO MONITOR PATIENT.
--- NOTE | 2021-07-21 12:30 | NUR ---
MS RN NOTE PATIENT DISCHARGED ORDERED. IN STABLE CONDITION. PATIETN ACCOMPANIED BY NURSE TO LOBBY. PATIENT PICKED UP BY GIRLFRIEND. ENDORSED ACCORDINGLY.
== END 2021-07-21 12:20 | disposition home or self-care (01) | DRG 435 ==
LOC: ER 15:34 → TELE 20:11 → MED 07-19 10:10
PROVIDERS: ADMIT Internal Medicine; ATTEND Nurse Practitioner Acute Care
PROC: 0FB13ZX Excision of Right Lobe Liver, Percutaneous Approach, Diagnostic (ICD-10-PCS; principal; 2021-07-19)
PROC: 07DR3ZX Extraction of Iliac Bone Marrow, Percutaneous Approach, Diagnostic (ICD-10-PCS; 2021-07-21)
DX: C78.7 Secondary malignant neoplasm of liver and intrahepatic bile duct (principal); I26.99 Other pulmonary embolism without acute cor pulmonale; I21.A1 Myocardial infarction type 2; I82.432 Acute embolism and thrombosis of left popliteal vein; D68.69 Other thrombophilia; C78.02 Secondary malignant neoplasm of left lung; C78.01 Secondary malignant neoplasm of right lung; M84.48XA Pathological fracture, other site, initial encounter for fracture; C79.89 Secondary malignant neoplasm of other specified sites; C25.9 Malignant neoplasm of pancreas, unspecified; I10 Essential (primary) hypertension; F41.9 Anxiety disorder, unspecified; D69.6 Thrombocytopenia, unspecified; Z20.822 Contact with and (suspected) exposure to COVID-19; D72.829 Elevated white blood cell count, unspecified; D50.9 Iron deficiency anemia, unspecified; R74.01 Elevation of levels of liver transaminase levels; D47.2 Monoclonal gammopathy; M89.9 Disorder of bone, unspecified
CPT/HCPCS: 36415; 70496-TC; 70498-TC; 71045-TC; 76942-TC; 77012-TC; 77075-TC; 80048-TC; 80053-TC; 80076-TC; 82232; 82378; 82728-TC; 82784; 83540-TC; 83615-TC; 83735-TC; 84100-TC; 84153-TC; 84154-TC; 84155; 84165; 84439-TC; 84443-TC; 84484-TC; 85025-TC; 85378-TC; 85610-TC; 85730-TC; 86301; 86334; 87040-TC; 87081-TC; 88307-TC; 88313-TC; 88333-TC; 88341; 88342; 93307-TC; 93970-TC; C9803; G0378; J0360; J1644; J1650; J2060; J2250; J2270; J2310; J2405; J3010; J3490; Q9967